=== PATIENT | female | born 1985 | race Caucasian/White ===

== ENCOUNTER 2018-05-19 14:21 | Inpatient (IN) | payer BC ==
[2018-05-19] MEDS ORDERED: Misoprostol 25 MCG (1/4 of 100 MCG) Tab VAG PRN (14:38)
[2018-05-19] MEDS ORDERED: Terbutaline 1 MG/ML SDV SUBCUT PRN (14:38)
[2018-05-19] MEDS ORDERED: Ondansetron 4 MG/2 ML SDV IV PRN (14:41)
[2018-05-19] MEDS ORDERED: Lidocaine 1% 50 ML MDV INJECT PRN (14:41)
[2018-05-19] MEDS ORDERED: Carboprost Tromethamine 250 MCG/1 ML Amp IM PRN (14:41)
[2018-05-19] MEDS ORDERED: Tranexamic Acid 1,000 MG in Sodium Chloride 0.9% 100 ML IV PRN (14:41)
[2018-05-19] MEDS ORDERED: Misoprostol 200 MCG Tab PO PRN (14:41)
[2018-05-19] MEDS ORDERED: Water For Irrigation,Sterile 1,000 ML Container IRR PRN (14:41)
[2018-05-19] MEDS ORDERED: Methylergonovine 0.2 MG/1 ML Amp IM PRN (14:41)
[2018-05-19] MEDS ORDERED: Sodium Chloride 0.9% 10 ML Syringe FLUSH PRN (14:41)
[2018-05-19] MEDS ORDERED: Nalbuphine 10 MG/1 ML Vial IVPUSH PRN (14:41)
[2018-05-19] MEDS ORDERED: Sodium Chloride 0.9% 10 ML SDV IV PRN (14:41)
[2018-05-19] MEDS ORDERED: Sodium Chloride 0.9% 2.5 ML Syringe FLUSH PRN (14:41)
[2018-05-19] MEDS ORDERED: Lactated Ringers 1,000 ML IV SCH (14:45)
[2018-05-19] MEDS ORDERED: Oxytocin/0.9 % Sodium Chloride 30 UNIT/500 ML BAG IV SCH ×2 (14:45)
[2018-05-19] MEDS: Butorphanol 1 MG/ML SDV IVPUSH PRN ×2 (19:55→21:57)
[2018-05-19] MEDS ORDERED: fentaNYL 100 MCG/2 ML SDV ONE (22:52)
--- NOTE | 2018-05-19 23:05 | PCM.PREANE ---
Preanesthetic Assessment - Anesthesia/Transfusion/Family Hx Anesthesia History: Prior Anesthesia Without Reaction Other Type of Anesthesia Reaction Comment: Reports post delivery (spinal) they gave IV drip med and I got sick Family History of Anesthesia Reaction: No Transfusion History: No Prior Transfusion(s) - Review of Systems General: No Symptoms Pulmonary: No Symptoms Cardiovascular: No Symptoms Gastrointestinal: No Symptoms Neurological: No Symptoms Other: Reports: None - Physical Assessment Height: 5 ft 6 in Weight: 82.1 kg ASA Class: 2 Mental Status: Alert & Oriented x3 Airway Class: Mallampati = 2 Dentition: Reports: Normal Dentition Thyro-Mental Finger Breadths: 3 Mouth Opening Finger Breadths: 3 ROM/Head Extension: Full Lungs: Clear to Auscultation, Normal Respiratory Effort Cardiovascular: Regular Rate, Regular Rhythm - Lab Values: Laboratory Last Values WBC 13.43 K/uL (4.0-11.0) H 05/19/18 15:10 RBC 4.68 M/uL (4.30-5.90) 05/19/18 15:10 Hgb 14.9 g/dL (12.0-16.0) 05/19/18 15:10 Hct 43.7 % (36.0-46.0) 05/19/18 15:10 MCV 93.4 fL (80.0-98.0) 05/19/18 15:10 MCH 31.8 pg (27.0-32.0) 05/19/18 15:10 MCHC 34.1 g/dL (31.0-37.0) 05/19/18 15:10 RDW Std Deviation 47.4 fl (28.0-62.0) 05/19/18 15:10 RDW Coeff of Renetta 14 % (11.0-15.0) 05/19/18 15:10 Plt Count 205 K/uL (150-400) 05/19/18 15:10 MPV 10.50 fL (7.40-12.00) 05/19/18 15:10 Nucleated RBC % 0.0 /100WBC 05/19/18 15:10 Nucleated RBCs # 0 K/uL 05/19/18 15:10 Blood Type O POSITIVE 05/19/18 15:10 Antibody Screen NEGATIVE 05/19/18 15:10 - Allergies Allergies/Adverse Reactions: Allergies Allergy/AdvReac Type Severity Reaction Status Date / Time morphine Allergy Nausea and Verified 05/19/18 17:18 Vomiting - Acknowledgements Anesthesia Type Planned: Spinal Pt an Appropriate Candidate for the Planned Anesthesia: Yes Alternatives and Risks of Anesthesia Discussed w Pt/Guardian: Yes Pt/Guardian Understands and Agrees with Anesthesia Plan: Yes PreAnesthesia Questionnaire HEENT History: Reports: None Cardiovascular History: Reports: Blood Clots/VTE/DVT Respiratory History: Reports: None Gastrointestinal History: Reports: GERD Genitourinary History: Reports: None HOME VISITOR History: Reports: : 2 Para: 1 LMP (Approximate): Other OB/BYN History: Delivered 9 months ago at that time had trouble with IV drip medication post delivery for pain as they did repair.."I do not know name of medication" Musculoskeletal History: Reports: Fracture Other Musculoskeletal History: hx: fractured wrist and nose Neurological History: Reports: None Psychiatric History: Reports: None Endocrine/Metabolic History: Reports: None Hematologic History: Reports: None Immunologic History: Reports: None Oncologic (Cancer) History: Reports: None Dermatologic History: Reports: None - Infectious Disease History Infectious Disease History: Reports: Chicken Pox - Past Surgical History HEENT Surgical History: Reports: Oral Surgery, Other (See Below) Other HEENT Surgeries/Procedures: wisdom teeth extraction Cardiovascular Surgical History: Reports: None Female Surgical History: Reports: Other (See Below) Musculoskeletal Surgical History: Reports: Other (See Below) Other Musculoskeletal Surgeries/Procedures:: right hand benign tumor removal Dermatological Surgical History: Reports: None - SUBSTANCE USE Smoking Status *Q: Never Smoker Recreational Drug Use History: No - HOME MEDS Home Medications: Home Meds Norgestimate-Ethinyl Estradiol [Ortho Tri-Cyclen 28 Tablet] 1 tab PO DAILY 10/27 [History] Acetaminophen/HYDROcodone [[place] 325-5 MG] 1 tab PO Q4H PRN #30 tablet 10/29/15 [Rx] - CURRENT (IN HOUSE) MEDS Current Meds: Current Medications Butorphanol Tartrate (Stadol) 1 mg IVPUSH Q1H PRN PRN Reason: Pain Last Admin: 05/19/18 21:57 Dose: 1 mg Carboprost Tromethamine (Hemabate Ds) 250 mcg IM ASDIRECTED PRN PRN Reason: Post Hemorrhage Lactated Ringer's (Ringers, Lactated) 1,000 mls @ 150 mls/hr IV ASDIRECTED ISAIAS Last Admin: 05/19/18 22:37 Dose: 999 mls/hr Oxytocin/Sodium Chloride (Oxytocin 30 Unit/500 Ml-Ns) 30 unit in 500 mls @ 2 mls/hr IV TITRATE ISAIAS; Protocol Oxytocin/Sodium Chloride (Oxytocin 30 Unit/500 Ml-Ns) 30 unit in 500 mls @ 500 mls/hr IV TITRATE ISAIAS Tranexamic Acid 1,000 mg/ (Sodium Chloride) 110 mls @ 660 mls/hr IV ONETIME PRN PRN Reason: Bleeding Lidocaine HCl (Xylocaine 1%) 50 ml INJECT ONETIME PRN PRN Reason: Laceration repair Methylergonovine Maleate (Methergine) 0.2 mg IM ASDIRECTED PRN PRN Reason: Post Hemorrhage Misoprostol (Cytotec) 25 mcg VAG Q4H PRN PRN Reason: Cervical Ripening Last Admin: 05/19/18 15:30 Dose: 25 mcg Misoprostol (Cytotec) 200 mcg PO ONETIME PRN PRN Reason: Post Hemorrhage Nalbuphine HCl (Nubain) 10 mg IVPUSH Q1H PRN PRN Reason: Pain (severe 7-10) Ondansetron HCl (Zofran) 4 mg IV Q6H PRN PRN Reason: Nausea/Vomiting Sodium Chloride (Saline Flush) 10 ml FLUSH ASDIRECTED PRN PRN Reason: Keep Vein Open Sodium Chloride (Saline Flush) 2.5 ml FLUSH ASDIRECTED PRN PRN Reason: Keep Vein Open Sodium Chloride (Normal Saline) 10 ml IV ASDIRECTED PRN PRN Reason: IV Use Sterile Water (Sterile Water For Irrigation) 1,000 ml IRR ASDIRECTED PRN PRN Reason: delivery Terbutaline Sulfate (Brethine) 0.25 mg SUBCUT ASDIRECTED PRN PRN Reason: Tacysystole Discontinued Medications Fentanyl (Sublimaze) Confirm Administered Dose 100 mcg .ROUTE .STK-MED ONE Stop: 05/19/18 22:53 Fentanyl/Bupivacaine HCl (Nwsrqxdo-Ftnfx-Ia 2 Mcg/Ml-0.125%) Confirm Administered Dose 100 mls @ as directed .ROUTE .STK-MED ONE Stop: 05/19/18 22:48
--- NOTE | 2018-05-19 23:52 | PCM.DEL ---
L & D Note - General Info Date of Service: 05/19/18 - Delivery Note Labor: Spontaneous Cervical Ripening Method: Misoprostil Delivery Outcome: Livebirth Infant Delivery Method: Spontaneous Vaginal Delivery-Single Presentation: Right Occiput Anterior (PANCHITO) Nuchal Cord: None Anesthetic: Lidocaine (Xylocaine) 1% Plain Amniotic Fluid Description: Clear Episiotomy Type: None Laceration: 2nd Degree Suture type: Other (monocryl) Suture size: 3-0 Placenta: Intact Cord: 3 Vessels Estimated Blood Loss: 300 Resuscitation Needed: No Score 1 min: 8 Score 5 min: 9 Delivery Comments (Free Text/Narrative):: Live female delivered at 2305 , weight 3590g 8/9 - General Info Date of Service: 05/19/18 - Patient Data Weight - Most Recent: 82.1 kg Lab Results Last 24 Hours: Laboratory Results - last 24 hr 05/19/18 05/19/18 Range/Units 15:10 15:10 WBC 13.43 H (4.0-11.0) K/uL RBC 4.68 (4.30-5.90) M/uL Hgb 14.9 (12.0-16.0) g/dL Hct 43.7 (36.0-46.0) % MCV 93.4 (80.0-98.0) fL MCH 31.8 (27.0-32.0) pg MCHC 34.1 (31.0-37.0) g/dL RDW Std Deviation 47.4 (28.0-62.0) fl RDW Coeff of Renetta 14 (11.0-15.0) % Plt Count 205 (150-400) K/uL MPV 10.50 (7.40-12.00) fL Nucleated RBC % 0.0 /100WBC Nucleated RBCs # 0 K/uL Blood Type O POSITIVE Antibody Screen NEGATIVE Med Orders - Current: Current Medications Butorphanol Tartrate (Stadol) 1 mg IVPUSH Q1H PRN PRN Reason: Pain Last Admin: 05/19/18 21:57 Dose: 1 mg Carboprost Tromethamine (Hemabate Ds) 250 mcg IM ASDIRECTED PRN PRN Reason: Post Hemorrhage Lactated Ringer's (Ringers, Lactated) 1,000 mls @ 150 mls/hr IV ASDIRECTED ISAIAS Last Admin: 05/19/18 22:37 Dose: 999 mls/hr Oxytocin/Sodium Chloride (Oxytocin 30 Unit/500 Ml-Ns) 30 unit in 500 mls @ 2 mls/hr IV TITRATE ISAIAS; Protocol Oxytocin/Sodium Chloride (Oxytocin 30 Unit/500 Ml-Ns) 30 unit in 500 mls @ 500 mls/hr IV TITRATE ISAIAS Tranexamic Acid 1,000 mg/ (Sodium Chloride) 110 mls @ 660 mls/hr IV ONETIME PRN PRN Reason: Bleeding Lidocaine HCl (Xylocaine 1%) 50 ml INJECT ONETIME PRN PRN Reason: Laceration repair Methylergonovine Maleate (Methergine) 0.2 mg IM ASDIRECTED PRN PRN Reason: Post Hemorrhage Misoprostol (Cytotec) 25 mcg VAG Q4H PRN PRN Reason: Cervical Ripening Last Admin: 05/19/18 15:30 Dose: 25 mcg Misoprostol (Cytotec) 200 mcg PO ONETIME PRN PRN Reason: Post Hemorrhage Nalbuphine HCl (Nubain) 10 mg IVPUSH Q1H PRN PRN Reason: Pain (severe 7-10) Ondansetron HCl (Zofran) 4 mg IV Q6H PRN PRN Reason: Nausea/Vomiting Sodium Chloride (Saline Flush) 10 ml FLUSH ASDIRECTED PRN PRN Reason: Keep Vein Open Sodium Chloride (Saline Flush) 2.5 ml FLUSH ASDIRECTED PRN PRN Reason: Keep Vein Open Sodium Chloride (Normal Saline) 10 ml IV ASDIRECTED PRN PRN Reason: IV Use Sterile Water (Sterile Water For Irrigation) 1,000 ml IRR ASDIRECTED PRN PRN Reason: delivery Terbutaline Sulfate (Brethine) 0.25 mg SUBCUT ASDIRECTED PRN PRN Reason: Tacysystole Discontinued Medications Fentanyl (Sublimaze) Confirm Administered Dose 100 mcg .ROUTE .STK-MED ONE Stop: 05/19/18 22:53 Fentanyl/Bupivacaine HCl (Yuqexnrr-Lwmzd-Wq 2 Mcg/Ml-0.125%) Confirm Administered Dose 100 mls @ as directed .ROUTE .STK-MED ONE Stop: 05/19/18 22:48 - Problem List Review Problem List Initiated/Reviewed/Updated: Yes - My Orders Last 24 Hours: My Active Orders 05/19/18 14:38 Terbutaline [Brethine] 0.25 mg SUBCUT ASDIRECTED PRN miSOPROStol [Cytotec] 25 mcg VAG Q4H PRN 05/19/18 14:39 Bedrest Bathroom Privileges [RC] ASDIRECTED Communication Order [RC] ASDIRECTED Communication Order [RC] ASDIRECTED Communication Order [RC] ASDIRECTED Notify Provider [RC] PRN Notify Provider [RC] PRN Notify Provider [RC] STAT Oxygen Therapy [RC] ASDIRECTED Vital Signs [RC] PER UNIT ROUTINE 05/19/18 14:41 Patient Status [ADT] Routine May Shower [RC] ASDIRECTED Notify Provider [RC] PRN Up ad Alley [RC] ASDIRECTED Vital Signs [RC] PER UNIT ROUTINE Butorphanol [Stadol] 1 mg IVPUSH Q1H PRN Carboprost Tromethamine [Hemabate DS] 250 mcg IM ASDIRECTED PRN Lidocaine 1% [Xylocaine 1%] 50 ml INJECT ONETIME PRN Methylergonovine [Methergine] 0.2 mg IM ASDIRECTED PRN Nalbuphine [Nubain] 10 mg IVPUSH Q1H PRN Ondansetron [Zofran] 4 mg IV Q6H PRN Sodium Chloride 0.9% [Normal Saline] 10 ml IV ASDIRECTED PRN Sodium Chloride 0.9% [Saline Flush] 10 ml FLUSH ASDIRECTED PRN Sodium Chloride 0.9% [Saline Flush] 2.5 ml FLUSH ASDIRECTED PRN Tranexamic Acid [Cyklokapron] 1,000 mg Sodium Chloride 0.9% [Normal Saline] 100 ml IV ONETIME Water For Irrigation,Sterile [Sterile Water for Irrigation] 1,000 ml IRR ASDIRECTED PRN miSOPROStol [Cytotec] 200 mcg PO ONETIME PRN Scalp Electrode [WOMSER] Per Unit Routine Peripheral IV Insertion Adult [OM.PC] Routine Resuscitation Status Routine 05/19/18 14:45 Lactated Ringers [Ringers, Lactated] 1,000 ml IV ASDIRECTED Oxytocin/0.9 % Sodium Chloride [Oxytocin 30 Unit/500 ML-NS] 30 unit in 500 ml IV TITRATE Oxytocin/0.9 % Sodium Chloride [Oxytocin 30 Unit/500 ML-NS] 30 unit in 500 ml IV TITRATE Medication Administration Instruction [OM.PC] Q3H 05/19/18 17:00 Antiembolic Devices [RC] PER UNIT ROUTINE Sequential Compression Device [OM.PC] Routine 05/19/18 Dinner Clear Liquid Diet [DIET]
[2018-05-20] MEDS ORDERED: Ibuprofen 400 MG Tab PO PRN (01:19)
[2018-05-20] MEDS ORDERED: Bisacodyl 10 MG Supp RECTAL PRN (01:19)
[2018-05-20] MEDS ORDERED: Acetaminophen 500 MG Tab PO PRN ×2 (01:19)
[2018-05-20] MEDS ORDERED: oxyCODONE 5 MG Tab PO PRN (01:19)
[2018-05-20] MEDS ORDERED: Witch Hazel Medicated Pads 40/Jar TOP PRN (01:19)
[2018-05-20] MEDS ORDERED: Benzocaine/Menthol 20%-0.5% Spray 78 GM Cannister TOP PRN (01:19)
[2018-05-20] MEDS ORDERED: Ibuprofen 800 MG Tab PO PRN (01:19)
[2018-05-20] MEDS ORDERED: Lanolin 100% Cream 7 GM Tube TOP PRN (01:19)
[2018-05-20] MEDS ORDERED: Docusate Sodium 100 MG Cap PO PRN (01:19)
--- NOTE | 2018-05-20 06:51 | OR ---
SURGEON: LAURA BERMAN DATE OF PROCEDURE: 05/19/2018 PREOPERATIVE DIAGNOSIS: A 32-year-old, G1, P0, at 40 weeks 0 days for induction of labor, GBS negative. POSTOPERATIVE DIAGNOSIS: A 32-year-old, G1, P0, at 40 weeks 0 days for induction of labor, GBS negative. PROCEDURE PERFORMED: 1. Induction of labor. 2. Spontaneous vaginal delivery. 3. Repair of second-degree vaginal laceration. ANESTHESIA: 1% lidocaine. FINDINGS: A live female delivered at 2305. score were 8 and 9. Weight is 3590 g. BRIEF HISTORY ABOUT THE PATIENT: She is G2, P1, at 40 weeks 0 days, who came to the clinic to the ER and she was desiring induction of labor. She was 3. She recieved a dose of Cytotec. She made progress to 4 cm. The membranes were ruptured. She had a rapid change within 2 hours. She became fully dilated. PROCEDURE: She was encouraged to push. She had good pushing effort. She delivered the head, followed subsequently by the anterior and posterior shoulder and body of the infant was delivered. The cord was clamped and cut. Pitocin was started. The placenta was delivered via controlled cord traction. The perineum was inspected and a second-degree laceration was noted, which was repaired with 2-0 Monocryl. Then, the periurethral laceration was noted that was noted to be hemostatic, so was not repaired. All instrument and pad counts were correct x3. The uterus was bimanually palpated and was noted to be firm and normal lochia was noted. All instrument and pad counts were correct x2. The patient tolerated the procedure well and was left in the labor and delivery room with the baby. SMITA CHRISTIANSON /[id number] ASHLEY
--- NOTE | 2018-05-20 10:52 | PCM.PNPP ---
- General Info Date of Service: 05/20/18 Admission Dx/Problem (Free Text): 32 yo P2 s/p , PPD 2 Subjective Update: Patient seen at bedside , ambulating , voiding and tolerating regular diet Functional Status: Reports: Pain Controlled, Tolerating Diet, Ambulating, Urinating - Review of Systems General: Reports: No Symptoms HEENT: Reports: No Symptoms Pulmonary: Reports: No Symptoms Cardiovascular: Reports: No Symptoms Gastrointestinal: Reports: No Symptoms Genitourinary: Reports: No Symptoms Musculoskeletal: Reports: No Symptoms Skin: Reports: No Symptoms Neurological: Reports: No Symptoms Psychiatric: Reports: No Symptoms - General Info Date of Service: 05/20/18 - Patient Data Vital Signs - Most Recent: Last Vital Signs Temp 36.2 C 05/20/18 07:20 Pulse 73 05/20/18 07:20 Resp 17 05/20/18 07:20 BP 132/72 05/20/18 07:20 Pulse Ox 100 05/20/18 07:20 Weight - Most Recent: 82.1 kg Lab Results - Last 24 Hours: Laboratory Results - last 24 hr 05/19/18 05/19/18 Range/Units 15:10 15:10 WBC 13.43 H (4.0-11.0) K/uL RBC 4.68 (4.30-5.90) M/uL Hgb 14.9 (12.0-16.0) g/dL Hct 43.7 (36.0-46.0) % MCV 93.4 (80.0-98.0) fL MCH 31.8 (27.0-32.0) pg MCHC 34.1 (31.0-37.0) g/dL RDW Std Deviation 47.4 (28.0-62.0) fl RDW Coeff of Renetta 14 (11.0-15.0) % Plt Count 205 (150-400) K/uL MPV 10.50 (7.40-12.00) fL Nucleated RBC % 0.0 /100WBC Nucleated RBCs # 0 K/uL Blood Type O POSITIVE Antibody Screen NEGATIVE Med Orders - Current: Current Medications Acetaminophen (Tylenol Extra Strength) 500 mg PO Q4H PRN PRN Reason: Pain Acetaminophen (Tylenol Extra Strength) 1,000 mg PO Q4H PRN PRN Reason: Pain Last Admin: 05/20/18 01:35 Dose: 1,000 mg Benzocaine/Menthol (Dermoplast Pain Relief 20%-0.5% [place]) 78 gm TOP ASDIRECTED PRN PRN Reason: Perineal Comfort Measure Last Admin: 05/20/18 01:36 Dose: 78 gm Bisacodyl (Dulcolax) 10 mg RECTAL ONETIME PRN PRN Reason: Constipation Butorphanol Tartrate (Stadol) 1 mg IVPUSH Q1H PRN PRN Reason: Pain Last Admin: 05/19/18 21:57 Dose: 1 mg Carboprost Tromethamine (Hemabate Ds) 250 mcg IM ASDIRECTED PRN PRN Reason: Post Hemorrhage Docusate Sodium (Colace) 100 mg PO BID PRN PRN Reason: Constipation Last Admin: 05/20/18 01:35 Dose: 100 mg Emollient Ointment (Lansinoh Hpa) 0 gm TOP ASDIRECTED PRN PRN Reason: Sore Nipples Last Admin: 05/20/18 01:36 Dose: 7 gm Lactated Ringer's (Ringers, Lactated) 1,000 mls @ 150 mls/hr IV ASDIRECTED ISAIAS Last Admin: 05/19/18 22:37 Dose: 999 mls/hr Oxytocin/Sodium Chloride (Oxytocin 30 Unit/500 Ml-Ns) 30 unit in 500 mls @ 2 mls/hr IV TITRATE [facility]; Protocol Oxytocin/Sodium Chloride (Oxytocin 30 Unit/500 Ml-Ns) 30 unit in 500 mls @ 500 mls/hr IV TITRATE ISAIAS Last Admin: 05/19/18 23:05 Dose: 999 mls/hr Tranexamic Acid 1,000 mg/ (Sodium Chloride) 110 mls @ 660 mls/hr IV ONETIME PRN PRN Reason: Bleeding Ibuprofen (Motrin) 400 mg PO Q4H PRN PRN Reason: Pain Ibuprofen (Motrin) 800 mg PO Q6H PRN PRN Reason: Pain Lidocaine HCl (Xylocaine 1%) 50 ml INJECT ONETIME PRN PRN Reason: Laceration repair Last Admin: 05/19/18 23:05 Dose: 50 ml Methylergonovine Maleate (Methergine) 0.2 mg IM ASDIRECTED PRN PRN Reason: Post Hemorrhage Misoprostol (Cytotec) 25 mcg VAG Q4H PRN PRN Reason: Cervical Ripening Last Admin: 05/19/18 15:30 Dose: 25 mcg Misoprostol (Cytotec) 200 mcg PO ONETIME PRN PRN Reason: Post Hemorrhage Nalbuphine HCl (Nubain) 10 mg IVPUSH Q1H PRN PRN Reason: Pain (severe 7-10) Ondansetron HCl (Zofran) 4 mg IV Q6H PRN PRN Reason: Nausea/Vomiting Oxycodone HCl (Oxycodone) 5 mg PO Q2H PRN PRN Reason: Pain Sodium Chloride (Saline Flush) 10 ml FLUSH ASDIRECTED PRN PRN Reason: Keep Vein Open Sodium Chloride (Saline Flush) 2.5 ml FLUSH ASDIRECTED PRN PRN Reason: Keep Vein Open Sodium Chloride (Normal Saline) 10 ml IV ASDIRECTED PRN PRN Reason: IV Use Sterile Water (Sterile Water For Irrigation) 1,000 ml IRR ASDIRECTED PRN PRN Reason: delivery Last Admin: 05/19/18 23:05 Dose: 1,000 ml Terbutaline Sulfate (Brethine) 0.25 mg SUBCUT ASDIRECTED PRN PRN Reason: Tacysystole Witch Marii (Tucks) 1 pad TOP ASDIRECTED PRN PRN Reason: comfort care Last Admin: 05/20/18 01:37 Dose: 1 pad Discontinued Medications Fentanyl (Sublimaze) Confirm Administered Dose 100 mcg .ROUTE .STK-MED ONE Stop: 05/19/18 22:53 Fentanyl/Bupivacaine HCl (Ydbsgtut-Jqhfr-Hk 2 Mcg/Ml-0.125%) Confirm Administered Dose 100 mls @ as directed .ROUTE .STK-MED ONE Stop: 05/19/18 22:48 - Infant Interaction Support Person: - Recovery Exam Fundal Tone: Firm Fundal Level: 1 Fingerbreadths Below Umbilicus Fundal Placement: Midline Lochia Amount: Scant Lochia Color: Rubra/Red Perineum Description: Other (see below) Other Perinuem Description: 2nd degree tear Episiotomy/Laceration: Approximated Bladder Status: Voiding Urinary Elimination: Voided - Exam General: Alert, Oriented HEENT: Pupils Equal Neck: Supple Lungs: Clear to Auscultation Cardiovascular: Regular Rate, Regular Rhythm GI/Abdominal Exam: Normal Bowel Sounds Extremities: Normal Inspection Neurological: No New Focal Deficit Psy/Mental Status: Alert - Problem List & Annotations (1) Vaginal delivery SNOMED Code(s): 846685054 Code(s): O80 - ENCOUNTER FOR FULL-TERM UNCOMPLICATED DELIVERY Status: Acute Current Visit: Yes - Problem List Review Problem List Initiated/Reviewed/Updated: Yes - My Orders Last 24 Hours: My Active Orders 05/19/18 14:38 Terbutaline [Brethine] 0.25 mg SUBCUT ASDIRECTED PRN miSOPROStol [Cytotec] 25 mcg VAG Q4H PRN 05/19/18 14:41 Patient Status [ADT] Routine Vital Signs [RC] PER UNIT ROUTINE Butorphanol [Stadol] 1 mg IVPUSH Q1H PRN Carboprost Tromethamine [Hemabate DS] 250 mcg IM ASDIRECTED PRN Lidocaine 1% [Xylocaine 1%] 50 ml INJECT ONETIME PRN Methylergonovine [Methergine] 0.2 mg IM ASDIRECTED PRN Nalbuphine [Nubain] 10 mg IVPUSH Q1H PRN Ondansetron [Zofran] 4 mg IV Q6H PRN Sodium Chloride 0.9% [Normal Saline] 10 ml IV ASDIRECTED PRN Sodium Chloride 0.9% [Saline Flush] 10 ml FLUSH ASDIRECTED PRN Sodium Chloride 0.9% [Saline Flush] 2.5 ml FLUSH ASDIRECTED PRN Tranexamic Acid [Cyklokapron] 1,000 mg Sodium Chloride 0.9% [Normal Saline] 100 ml IV ONETIME Water For Irrigation,Sterile [Sterile Water for Irrigation] 1,000 ml IRR ASDIRECTED PRN miSOPROStol [Cytotec] 200 mcg PO ONETIME PRN Scalp Electrode [WOMSER] Per Unit Routine Peripheral IV Insertion Adult [OM.PC] Routine Resuscitation Status Routine 05/19/18 14:45 Lactated Ringers [Ringers, Lactated] 1,000 ml IV ASDIRECTED Oxytocin/0.9 % Sodium Chloride [Oxytocin 30 Unit/500 ML-NS] 30 unit in 500 ml IV TITRATE Oxytocin/0.9 % Sodium Chloride [Oxytocin 30 Unit/500 ML-NS] 30 unit in 500 ml IV TITRATE Medication Administration Instruction [OM.PC] Q3H 05/19/18 17:00 Antiembolic Devices [RC] PER UNIT ROUTINE Sequential Compression Device [OM.PC] Routine 05/20/18 01:19 Patient Status [ADT] Routine Up ad Alley [RC] ASDIRECTED Vital Signs [RC] PER UNIT ROUTINE Acetaminophen [Tylenol Extra Strength] 1,000 mg PO Q4H PRN Acetaminophen [Tylenol Extra Strength] 500 mg PO Q4H PRN Benzocaine/Menthol [Dermoplast Pain Relief 20%-0.5% [place]] 78 gm TOP ASDIRECTED PRN Bisacodyl [Dulcolax] 10 mg RECTAL ONETIME PRN Docusate Sodium [Colace] 100 mg PO BID PRN Ibuprofen [Motrin] 400 mg PO Q4H PRN Ibuprofen [Motrin] 800 mg PO Q6H PRN Lanolin [Lansinoh HPA] See Dose Instructions TOP ASDIRECTED PRN Witch Marii [Tucks] 1 pad TOP ASDIRECTED PRN oxyCODONE 5 mg PO Q2H PRN Assess Lochia [WOMSER] Per Unit Routine Assess Uterine Involution [WOMSER] Per Unit Routine Peripheral IV Discontinue [OM.PC] Routine 05/20/18 Breakfast Regular Diet [DIET] 05/21/18 05:11 HEMOGLOBIN/HEMATOCRIT,HH [HEME] Timed - Assessment Assessment:: 32 yo P2 s/p PPD 1 , stable , normal lochia , - Plan Plan:: Anticipate discharge tomorrow
[2018-05-21 07:41] VITALS: BP 112/70
--- NOTE | 2018-05-21 09:09 | PCM.PNPP ---
- General Info Date of Service: 05/21/18 Admission Dx/Problem (Free Text): 32 yo P2 s/p , PPD 2 Subjective Update: Patient seen at bedside , ambulating , voiding and tolerating regular diet Functional Status: Reports: Pain Controlled, Tolerating Diet, Ambulating, Urinating - Review of Systems General: Reports: No Symptoms HEENT: Reports: No Symptoms Pulmonary: Reports: No Symptoms Cardiovascular: Reports: No Symptoms Gastrointestinal: Reports: No Symptoms Genitourinary: Reports: No Symptoms Musculoskeletal: Reports: No Symptoms Skin: Reports: No Symptoms Neurological: Reports: No Symptoms Psychiatric: Reports: No Symptoms - General Info Date of Service: 05/21/18 - Patient Data Vital Signs - Most Recent: Last Vital Signs Temp 36.4 C 05/21/18 07:15 Pulse 68 05/21/18 07:15 Resp 17 05/21/18 07:15 BP 112/70 05/21/18 07:15 Pulse Ox 96 05/21/18 07:15 Weight - Most Recent: 82.1 kg Lab Results - Last 24 Hours: Laboratory Results - last 24 hr 05/21/18 Range/Units 06:45 Hgb 12.5 (12.0-16.0) g/dL Hct 36.9 (36.0-46.0) % Med Orders - Current: Current Medications Acetaminophen (Tylenol Extra Strength) 500 mg PO Q4H PRN PRN Reason: Pain Acetaminophen (Tylenol Extra Strength) 1,000 mg PO Q4H PRN PRN Reason: Pain Last Admin: 05/20/18 01:35 Dose: 1,000 mg Benzocaine/Menthol (Dermoplast Pain Relief 20%-0.5% [place]) 78 gm TOP ASDIRECTED PRN PRN Reason: Perineal Comfort Measure Last Admin: 05/20/18 01:36 Dose: 78 gm Bisacodyl (Dulcolax) 10 mg RECTAL ONETIME PRN PRN Reason: Constipation Butorphanol Tartrate (Stadol) 1 mg IVPUSH Q1H PRN PRN Reason: Pain Last Admin: 05/19/18 21:57 Dose: 1 mg Carboprost Tromethamine (Hemabate Ds) 250 mcg IM ASDIRECTED PRN PRN Reason: Post Hemorrhage Docusate Sodium (Colace) 100 mg PO BID PRN PRN Reason: Constipation Last Admin: 05/20/18 01:35 Dose: 100 mg Emollient Ointment (Lansinoh Hpa) 0 gm TOP ASDIRECTED PRN PRN Reason: Sore Nipples Last Admin: 05/20/18 01:36 Dose: 7 gm Lactated Ringer's (Ringers, Lactated) 1,000 mls @ 150 mls/hr IV ASDIRECTED ISAIAS Last Admin: 05/19/18 22:37 Dose: 999 mls/hr Oxytocin/Sodium Chloride (Oxytocin 30 Unit/500 Ml-Ns) 30 unit in 500 mls @ 2 mls/hr IV TITRATE [facility]; Protocol Oxytocin/Sodium Chloride (Oxytocin 30 Unit/500 Ml-Ns) 30 unit in 500 mls @ 500 mls/hr IV TITRATE ISAIAS Last Admin: 05/19/18 23:05 Dose: 999 mls/hr Tranexamic Acid 1,000 mg/ (Sodium Chloride) 110 mls @ 660 mls/hr IV ONETIME PRN PRN Reason: Bleeding Ibuprofen (Motrin) 400 mg PO Q4H PRN PRN Reason: Pain Ibuprofen (Motrin) 800 mg PO Q6H PRN PRN Reason: Pain Lidocaine HCl (Xylocaine 1%) 50 ml INJECT ONETIME PRN PRN Reason: Laceration repair Last Admin: 05/19/18 23:05 Dose: 50 ml Methylergonovine Maleate (Methergine) 0.2 mg IM ASDIRECTED PRN PRN Reason: Post Hemorrhage Misoprostol (Cytotec) 25 mcg VAG Q4H PRN PRN Reason: Cervical Ripening Last Admin: 05/19/18 15:30 Dose: 25 mcg Misoprostol (Cytotec) 200 mcg PO ONETIME PRN PRN Reason: Post Hemorrhage Nalbuphine HCl (Nubain) 10 mg IVPUSH Q1H PRN PRN Reason: Pain (severe 7-10) Ondansetron HCl (Zofran) 4 mg IV Q6H PRN PRN Reason: Nausea/Vomiting Oxycodone HCl (Oxycodone) 5 mg PO Q2H PRN PRN Reason: Pain Sodium Chloride (Saline Flush) 10 ml FLUSH ASDIRECTED PRN PRN Reason: Keep Vein Open Sodium Chloride (Saline Flush) 2.5 ml FLUSH ASDIRECTED PRN PRN Reason: Keep Vein Open Sodium Chloride (Normal Saline) 10 ml IV ASDIRECTED PRN PRN Reason: IV Use Sterile Water (Sterile Water For Irrigation) 1,000 ml IRR ASDIRECTED PRN PRN Reason: delivery Last Admin: 05/19/18 23:05 Dose: 1,000 ml Terbutaline Sulfate (Brethine) 0.25 mg SUBCUT ASDIRECTED PRN PRN Reason: Tacysystole Witch Marii (Tucks) 1 pad TOP ASDIRECTED PRN PRN Reason: comfort care Last Admin: 05/20/18 01:37 Dose: 1 pad Discontinued Medications Fentanyl (Sublimaze) Confirm Administered Dose 100 mcg .ROUTE .STK-MED ONE Stop: 05/19/18 22:53 Last Admin: 05/20/18 17:17 Dose: Not Given Fentanyl/Bupivacaine HCl (Yybfbxhq-Vuide-If 2 Mcg/Ml-0.125%) Confirm Administered Dose 100 mls @ as directed .ROUTE .STK-MED ONE Stop: 05/19/18 22:48 Last Admin: 05/20/18 17:17 Dose: Not Given - Interaction Support Person: - Recovery Exam Fundal Tone: Firm Fundal Level: At Umbilicus Fundal Placement: Midline Lochia Amount: Scant Lochia Color: Rubra/Red Perineum Description: Other (see below) Other Perinuem Description: 2nd degree laceration. Episiotomy/Laceration: Approximated Bladder Status: Voiding Urinary Elimination: Voided - Problem List & Annotations (1) Vaginal delivery SNOMED Code(s): 959910458 Code(s): O80 - ENCOUNTER FOR FULL-TERM UNCOMPLICATED DELIVERY Status: Acute Current Visit: Yes - Problem List Review Problem List Initiated/Reviewed/Updated: Yes - Assessment Assessment:: 32 yo P2 s/p PPD 2 , stable , normal lochia , - Plan Plan:: Discharge home today
== END 2018-05-21 11:45 | disposition home or self-care (01) | DRG 560 ==
LOC: MW.OB 14:21 → OBSVTOIN 20:05 → MW.OB 05-20 02:28
PROVIDERS: ADMIT Obstetrics & Gynecology; ATTEND Obstetrics & Gynecology
PROC: 10907ZC Drainage of Amniotic Fluid, Therapeutic from Products of Conception, Via Natural or Artificial Opening (ICD-10-PCS; principal; 2018-05-19)
PROC: 10E0XZZ Delivery of Products of Conception, External Approach (ICD-10-PCS; principal; 2018-05-19)
PROC: 0KQM0ZZ Repair Perineum Muscle, Open Approach (ICD-10-PCS; principal; 2018-05-19)
PROC: 3E0P7VZ Introduction of Hormone into Female Reproductive, Via Natural or Artificial Opening (ICD-10-PCS; principal; 2018-05-19)
DX: O48.0 Post-term pregnancy (principal); Z3A.40 40 weeks gestation of pregnancy; O70.1 Second degree perineal laceration during delivery; Z37.0 Single live birth; O99.62 Diseases of the digestive system complicating childbirth; K21.9 Gastro-esophageal reflux disease without esophagitis; Z88.5 Allergy status to narcotic agent
CPT/HCPCS: 36415; 59025; 59409; 85014; 85018; 85027; 86850; 86900; 86901; A9270-GY; J0595; J2001; J2590; J7120

== ENCOUNTER 2020-05-29 12:25 | Inpatient (IN) | payer BC ==
[2020-05-29] MEDS ORDERED: Nalbuphine 10 MG/1 ML Vial IVPUSH PRN (12:43)
[2020-05-29] MEDS ORDERED: Sodium Chloride 0.9% 2.5 ML Syringe FLUSH PRN (12:43)
[2020-05-29] MEDS ORDERED: Sodium Chloride 0.9% 10 ML Syringe FLUSH PRN (12:43)
[2020-05-29] MEDS ORDERED: Carboprost Tromethamine 250 MCG/1 ML Amp IM PRN (12:43)
[2020-05-29] MEDS ORDERED: Methylergonovine 0.2 MG/1 ML Amp IM PRN (12:43)
[2020-05-29] MEDS ORDERED: Misoprostol 200 MCG Tab PO PRN (12:43)
[2020-05-29] MEDS ORDERED: Sodium Chloride 0.9% 10 ML SDV IV PRN (12:43)
[2020-05-29] MEDS ORDERED: Tranexamic Acid 1,000 MG in Sodium Chloride 0.9% 100 ML IV PRN (12:43)
[2020-05-29] MEDS ORDERED: Water For Irrigation,Sterile 1,000 ML Container IRR PRN (12:43)
[2020-05-29] MEDS ORDERED: Lidocaine 1% 50 ML MDV INJECT PRN (12:43)
[2020-05-29] MEDS ORDERED: Butorphanol 1 MG/ML SDV IVPUSH PRN (12:43)
[2020-05-29] MEDS ORDERED: Oxytocin/0.9 % Sodium Chloride 30 UNIT/500 ML BAG IV SCH (12:45)
[2020-05-29] MEDS: Lactated Ringers 1,000 ML IV SCH ×2 (12:48→13:26)
[2020-05-29] MEDS ORDERED: fentaNYL 100 MCG/2 ML SDV ONE (12:55)
[2020-05-29] MEDS ORDERED: Ropivacaine HCl/PF 100 ML ONE (12:56)
--- NOTE | 2020-05-29 13:29 | PCM.PREANE ---
Preanesthetic Assessment - Procedure Proposed Procedure: Pt assessed at 1250 for continuous labor epidural for active labor. - Anesthesia/Transfusion/Family Hx Anesthesia History: Prior Anesthesia Without Reaction (Previous light spinal for vag. delivery, sedation for procedure on hand, both without negative anesthesia reactions) Other Type of Anesthesia Reaction Comment: Reports post delivery (spinal) they gave IV drip med and I got sick Family History of Anesthesia Reaction: No Transfusion History: No Prior Transfusion(s) - Review of Systems General: No Symptoms Pulmonary: No Symptoms Cardiovascular: No Symptoms Gastrointestinal: No Symptoms Neurological: No Symptoms Other: Reports: None - Physical Assessment NPO Status Date: 05/29/20 (Clear liquids okay. NPO for food since 09. ) NPO Status Time: 09:00 ASA Class: 2 Mental Status: Alert & Oriented x3 Airway Class: Mallampati = 2 Dentition: Reports: Normal Dentition Thyro-Mental Finger Breadths: 4 Mouth Opening Finger Breadths: 3 ROM/Head Extension: Full Lungs: Normal Respiratory Effort Cardiovascular: Regular Rate, Regular Rhythm - Lab Values: Laboratory Last Values WBC 11.79 K/uL (4.0-11.0) H 05/29/20 12:33 RBC 4.86 M/uL (4.30-5.90) 05/29/20 12:33 Hgb 15.7 g/dL (12.0-16.0) 05/29/20 12:33 Hct 46.9 % (36.0-46.0) H 05/29/20 12:33 MCV 96.5 fL (80.0-98.0) 05/29/20 12:33 MCH 32.3 pg (27.0-32.0) H 05/29/20 12:33 MCHC 33.5 g/dL (31.0-37.0) 05/29/20 12:33 RDW Std Deviation 49.2 fl (28.0-62.0) 05/29/20 12:33 RDW Coeff of Renetta 14 % (11.0-15.0) 05/29/20 12:33 Plt Count 190 K/uL (150-400) 05/29/20 12:33 MPV 11.10 fL (7.40-12.00) 05/29/20 12:33 Nucleated RBC % 0.0 /100WBC 05/29/20 12:33 Nucleated RBCs # 0 K/uL 05/29/20 12:33 - Allergies Allergies/Adverse Reactions: Allergies Allergy/AdvReac Type Severity Reaction Status Date / Time morphine Allergy Nausea and Verified 03/21/20 16:19 Vomiting - Acknowledgements Anesthesia Type Planned: Epidural Pt an Appropriate Candidate for the Planned Anesthesia: Yes Alternatives and Risks of Anesthesia Discussed w Pt/Guardian: Yes Pt/Guardian Understands and Agrees with Anesthesia Plan: Yes Additional Comments: Bedside with patient and S.O. Discussed risks, benefits, alternatives, and procedure for epidural. All questions answered and concerns addressed. H & P completed. Consent signed with RN witness. PreAnesthesia Questionnaire HEENT History: Reports: None Cardiovascular History: Reports: Blood Clots/VTE/DVT Respiratory History: Reports: None Gastrointestinal History: Reports: GERD Genitourinary History: Reports: None ARCHITECTURE CONSULTANT History: Reports: Other OB/BYN History: Delivered 9 months ago at that time had trouble with IV drip medication post delivery for pain as they did repair.."I do not know name of medication" Musculoskeletal History: Reports: Fracture Other Musculoskeletal History: hx: fractured wrist and nose Neurological History: Reports: None Psychiatric History: Reports: None Endocrine/Metabolic History: Reports: None Hematologic History: Reports: None Immunologic History: Reports: None Oncologic (Cancer) History: Reports: None Dermatologic History: Reports: None - Infectious Disease History Infectious Disease History: Reports: Chicken Pox - Past Surgical History HEENT Surgical History: Reports: Oral Surgery, Other (See Below) Other HEENT Surgeries/Procedures: wisdom teeth extraction Cardiovascular Surgical History: Reports: None Female Surgical History: Reports: Other (See Below) Musculoskeletal Surgical History: Reports: Other (See Below) Other Musculoskeletal Surgeries/Procedures:: right hand benign tumor removal Dermatological Surgical History: Reports: None - HOME MEDS Home Medications: Home Meds Pnv No.95/Ferrous Fum/Folic AC [ Tablet] 1 tab PO DAILY 03/21/20 [History] - CURRENT (IN HOUSE) MEDS Current Meds: Current Medications Butorphanol Tartrate (Butorphanol 1 Mg/Ml Sdv) 1 mg IVPUSH Q1H PRN PRN Reason: Pain Carboprost Tromethamine (Carboprost Tromethamine 250 Mcg/1 Ml Amp) 250 mcg IM ASDIRECTED PRN PRN Reason: Post Hemorrhage Oxytocin/Sodium Chloride (Oxytocin 30 Unit/500 Ml-Ns) 30 unit in 500 mls @ 500 mls/hr IV TITRATE [facility] Tranexamic Acid 1,000 mg/ (Sodium Chloride) 110 mls @ 660 mls/hr IV ONETIME PRN PRN Reason: Bleeding Lactated Ringer's (Ringers, Lactated) 1,000 mls @ 150 mls/hr IV ASDIRECTED [facility] Lidocaine HCl (Lidocaine 1% 50 Ml Mdv) 50 ml INJECT ONETIME PRN PRN Reason: Laceration repair Methylergonovine Maleate (Methylergonovine 0.2 Mg/1 Ml Amp) 0.2 mg IM ASDIRECTED PRN PRN Reason: Post Hemorrhage Misoprostol (Misoprostol 200 Mcg Tab) 200 mcg PO ONETIME PRN PRN Reason: Post Hemorrhage Nalbuphine HCl (Nalbuphine 10 Mg/1 Ml Vial) 10 mg IVPUSH Q1H PRN PRN Reason: Pain (severe 7-10) Sodium Chloride (Sodium Chloride 0.9% 10 Ml Syringe) 10 ml FLUSH ASDIRECTED PRN PRN Reason: Keep Vein Open Sodium Chloride (Sodium Chloride 0.9% 2.5 Ml Syringe) 2.5 ml FLUSH ASDIRECTED PRN PRN Reason: Keep Vein Open Sodium Chloride (Sodium Chloride 0.9% 10 Ml Sdv) 10 ml IV ASDIRECTED PRN PRN Reason: IV Use Sterile Water (Water For Irrigation,Sterile 1,000 Ml Container) 1,000 ml IRR ASDIRECTED PRN PRN Reason: delivery Discontinued Medications Fentanyl (Fentanyl 100 Mcg/2 Ml Sdv) Confirm Administered Dose 200 mcg .ROUTE .STK-MED ONE Stop: 05/29/20 12:56 Ropivacaine (Naropin 0.2%) Confirm Administered Dose 100 mls @ as directed .ROUTE .STK-MED ONE Stop: 05/29/20 12:57
--- NOTE | 2020-05-29 13:36 | PCM.SN.2 ---
- Free Text/Narrative Note: Anesthesia time 2032-0291 MAMTA procedure note 1250- Bedside with patient and S.O. Discussed risks, benefits, alternatives, and procedure for epidural. All questions answered and concerns addressed. H & P completed, labs reviewed. 1255- Consent signed with RN witness. 1305- Sitting position. ASA monitors on. See RN EMR charting for VS throughout. Time-out completed. 1306- Hat for provider and pt, sterile gloves, Sterile prep. with chlorhexidine, sterile plastic drape. 1307- Lido 1% for localization 1308- First attempt successful at L 3-4 level, ANGELA with saline at 7 cm. No paresthesias. Catheter threaded without resistance to 12 cm. 1309- Negative to aspiration for both heme and CSF. Negative test dose (3ml 1.5%lido with 1:200,000 epi.). 1311- Sterile occlusive dressing placed, cloth tape to secure. 1316- Clinician bolus of remaining 2ml 1.5% lido with epi, and 6 ml 0.2% ropiv. c/ 2 mcg/ml fentanyl. 1316- epidural infusion started (0.2% ropivicaine c/ 2 mcg/ml fentanyl) at 8 ml/hr with DOORPERSON OR LUGGAGE PORTER option of 4ml every 10 min with an hourly max. of 36 ml. Pt educated regarding DOORPERSON OR LUGGAGE PORTER use. 1336- pt reassessed. VSS. T9 level achieved. Pt reports satisfactory pain control.
[2020-05-29] MEDS ORDERED: Benzocaine/Menthol 20%-0.5% Spray 78 GM Cannister TOP PRN (18:07)
[2020-05-29] MEDS ORDERED: Docusate Sodium 100 MG Cap PO PRN (18:07)
[2020-05-29] MEDS ORDERED: Lanolin 100% Cream 7 GM Tube TOP PRN (18:07)
[2020-05-29] MEDS ORDERED: Ibuprofen 400 MG Tab PO PRN (18:07)
[2020-05-29] MEDS ORDERED: Bisacodyl 10 MG Supp RECTAL PRN (18:07)
[2020-05-29] MEDS ORDERED: Witch Hazel Medicated Pads 40/Jar TOP PRN (18:07)
[2020-05-29] MEDS ORDERED: Acetaminophen 500 MG Tab PO PRN ×2 (18:07)
[2020-05-29] MEDS ORDERED: oxyCODONE 5 MG Tab PO PRN (18:07)
[2020-05-29] MEDS: Ibuprofen 800 MG Tab PO PRN (18:31)
--- NOTE | 2020-05-29 18:45 | PCM.DEL ---
L & D Note - General Info Date of Service: 05/29/20 - Delivery Note Labor: Spontaneous Delivery Outcome: Livebirth Delivery Method: Spontaneous Vaginal Delivery-Single Presentation: Left Occiput Anterior ([place]) Nuchal Cord: None Anesthesia Type: Epidural Amniotic Fluid Description: Clear Episiotomy Type: None Laceration: 2nd Degree Suture type: Vicryl, Other (Monocyrl 2.0) Suture size: 2-0 Placenta: Intact Cord: 3 Vessels Estimated Blood Loss: 300 Resuscitation Needed: No Score 1 min: 8 Score 5 min: 9 Delivery Comments (Free Text/Narrative):: Live male delivered at 1545 8/9 weight 4430g 3VC - General Info Date of Service: 05/29/20 - Patient Data Weight - Most Recent: 83.915 kg Lab Results Last 24 Hours: Laboratory Results - last 24 hr 05/29/20 05/29/20 05/29/20 Range/Units 12:33 12:33 13:46 WBC 11.79 H (4.0-11.0) K/uL RBC 4.86 (4.30-5.90) M/uL Hgb 15.7 (12.0-16.0) g/dL Hct 46.9 H (36.0-46.0) % MCV 96.5 (80.0-98.0) fL MCH 32.3 H (27.0-32.0) pg MCHC 33.5 (31.0-37.0) g/dL RDW Std Deviation 49.2 (28.0-62.0) fl RDW Coeff of Renetta 14 (11.0-15.0) % Plt Count 190 (150-400) K/uL MPV 11.10 (7.40-12.00) fL Nucleated RBC % 0.0 /100WBC Nucleated RBCs # 0 K/uL Cord ABG pH (7.18-7.38) Cord ABG Base Excess (-10--2) Cord VBG pH (7.25-7.45) Cord VBG Base Excess (-10--2) SARS-CoV-2 RNA (VICTOR HUGO) NEGATIVE (NEGATIVE) Blood Type O POSITIVE Antibody Screen NEGATIVE 05/29/20 Range/Units 15:46 WBC (4.0-11.0) K/uL RBC (4.30-5.90) M/uL Hgb (12.0-16.0) g/dL Hct (36.0-46.0) % MCV (80.0-98.0) fL MCH (27.0-32.0) pg MCHC (31.0-37.0) g/dL RDW Std Deviation (28.0-62.0) fl RDW Coeff of Renetta (11.0-15.0) % Plt Count (150-400) K/uL MPV (7.40-12.00) fL Nucleated RBC % /100WBC Nucleated RBCs # K/uL Cord ABG pH 7.194 (7.18-7.38) Cord ABG Base Excess -10 (-10--2) Cord VBG pH 7.274 (7.25-7.45) Cord VBG Base Excess -9 (-10--2) SARS-CoV-2 RNA (VICTOR HUGO) (NEGATIVE) Blood Type Antibody Screen Med Orders - Current: Current Medications Acetaminophen (Acetaminophen 500 Mg Tab) 500 mg PO Q4H PRN PRN Reason: Pain Acetaminophen (Acetaminophen 500 Mg Tab) 1,000 mg PO Q4H PRN PRN Reason: Pain Benzocaine/Menthol (Benzocaine/Menthol 20%-0.5% [place] 78 Gm Cannister) 78 gm TOP ASDIRECTED PRN PRN Reason: Perineal Comfort Measure Last Admin: 05/29/20 18:29 Dose: 1 canister Documented by: Bisacodyl (Bisacodyl 10 Mg Supp) 10 mg RECTAL ONETIME PRN PRN Reason: Constipation Butorphanol Tartrate (Butorphanol 1 Mg/Ml Sdv) 1 mg IVPUSH Q1H PRN PRN Reason: Pain Carboprost Tromethamine (Carboprost Tromethamine 250 Mcg/1 Ml Amp) 250 mcg IM ASDIRECTED PRN PRN Reason: Post Hemorrhage Docusate Sodium (Docusate Sodium 100 Mg Cap) 100 mg PO BID PRN PRN Reason: Constipation Emollient Ointment (Lanolin 100% Cream 7 Gm Tube) 0 gm TOP ASDIRECTED PRN PRN Reason: Sore Nipples Last Admin: 05/29/20 18:30 Dose: 7 g Documented by: Oxytocin/Sodium Chloride (Oxytocin 30 Unit/500 Ml-Ns) 30 unit in 500 mls @ 500 mls/hr IV TITRATE [facility] Last Infusion: 05/29/20 16:00 Dose: 500 mls/hr Documented by: Tranexamic Acid 1,000 mg/ (Sodium Chloride) 110 mls @ 660 mls/hr IV ONETIME PRN PRN Reason: Bleeding Lactated Ringer's (Ringers, Lactated) 1,000 mls @ 150 mls/hr IV ASDIRECTED [facility] Last Admin: 05/29/20 13:26 Dose: 999 mls/hr Documented by: Ibuprofen (Ibuprofen 400 Mg Tab) 400 mg PO Q4H PRN PRN Reason: Pain Ibuprofen (Ibuprofen 800 Mg Tab) 800 mg PO Q6H PRN PRN Reason: Pain Last Admin: 05/29/20 18:31 Dose: 800 mg Documented by: Lidocaine HCl (Lidocaine 1% 50 Ml Mdv) 50 ml INJECT ONETIME PRN PRN Reason: Laceration repair Last Admin: 05/29/20 16:11 Dose: 50 ml Documented by: Methylergonovine Maleate (Methylergonovine 0.2 Mg/1 Ml Amp) 0.2 mg IM ASDIRECTED PRN PRN Reason: Post Hemorrhage Misoprostol (Misoprostol 200 Mcg Tab) 200 mcg PO ONETIME PRN PRN Reason: Post Hemorrhage Nalbuphine HCl (Nalbuphine 10 Mg/1 Ml Vial) 10 mg IVPUSH Q1H PRN PRN Reason: Pain (severe 7-10) Oxycodone HCl (Oxycodone 5 Mg Tab) 5 mg PO Q2H PRN PRN Reason: Pain Sodium Chloride (Sodium Chloride 0.9% 10 Ml Syringe) 10 ml FLUSH ASDIRECTED PRN PRN Reason: Keep Vein Open Sodium Chloride (Sodium Chloride 0.9% 2.5 Ml Syringe) 2.5 ml FLUSH ASDIRECTED PRN PRN Reason: Keep Vein Open Sodium Chloride (Sodium Chloride 0.9% 10 Ml Sdv) 10 ml IV ASDIRECTED PRN PRN Reason: IV Use Sterile Water (Water For Irrigation,Sterile 1,000 Ml Container) 1,000 ml IRR ASDIRECTED PRN PRN Reason: delivery Witch Marii (Witch Marii Medicated Pads 40/Jar) 1 pad TOP ASDIRECTED PRN PRN Reason: comfort care Last Admin: 05/29/20 18:29 Dose: 1 tub Documented by: Discontinued Medications Fentanyl (Fentanyl 100 Mcg/2 Ml Sdv) Confirm Administered Dose 200 mcg .ROUTE .STK-MED ONE Stop: 05/29/20 12:56 Ropivacaine (Naropin 0.2%) Confirm Administered Dose 100 mls @ as directed .ROUTE .STK-MED ONE Stop: 05/29/20 12:57 - Problem List & Annotations (1) Vaginal delivery SNOMED Code(s): 407218129 Code(s): O80 - ENCOUNTER FOR FULL-TERM UNCOMPLICATED DELIVERY Status: Acute Current Visit: No - Problem List Review Problem List Initiated/Reviewed/Updated: Yes - My Orders Last 24 Hours: My Active Orders 05/29/20 12:15 Patient Status [ADT] Routine 05/29/20 12:33 RPR (SYPHILIS SERO) W/ RFLX [REF] Routine 05/29/20 12:43 May Shower [RC] ASDIRECTED Notify Provider [RC] PRN Up ad Alley [RC] ASDIRECTED Vital Signs [RC] PER UNIT ROUTINE Butorphanol [Stadol] 1 mg IVPUSH Q1H PRN Carboprost Tromethamine [Hemabate DS] 250 mcg IM ASDIRECTED PRN Lidocaine 1% [Xylocaine 1%] 50 ml INJECT ONETIME PRN Methylergonovine [Methergine] 0.2 mg IM ASDIRECTED PRN Nalbuphine [Nubain] 10 mg IVPUSH Q1H PRN Sodium Chloride 0.9% [Normal Saline] 10 ml IV ASDIRECTED PRN Sodium Chloride 0.9% [Saline Flush] 10 ml FLUSH ASDIRECTED PRN Sodium Chloride 0.9% [Saline Flush] 2.5 ml FLUSH ASDIRECTED PRN Tranexamic Acid [Cyklokapron] 1,000 mg Sodium Chloride 0.9% [Normal Saline] 100 ml IV ONETIME Water For Irrigation,Sterile [Sterile Water for Irrigation] 1,000 ml IRR ASDIRECTED PRN miSOPROStoL [Cytotec] 200 mcg PO ONETIME PRN Peripheral IV Insertion Adult [OM.PC] Routine Resuscitation Status Routine 05/29/20 12:45 Lactated Ringers [Ringers, Lactated] 1,000 ml IV ASDIRECTED Oxytocin/0.9 % Sodium Chloride [Oxytocin 30 Unit/500 ML-NS] 30 unit in 500 ml IV TITRATE 05/29/20 18:07 Acetaminophen [Tylenol Extra Strength] 1,000 mg PO Q4H PRN Acetaminophen [Tylenol Extra Strength] 500 mg PO Q4H PRN Benzocaine/Menthol [Dermoplast Pain Relief 20%-0.5% [place]] 78 gm TOP ASDIRECTED PRN Docusate Sodium [Colace] 100 mg PO BID PRN Ibuprofen [Motrin] 400 mg PO Q4H PRN Ibuprofen [Motrin] 800 mg PO Q6H PRN Lanolin [Lansinoh HPA] See Dose Instructions TOP ASDIRECTED PRN bisacodyL [Dulcolax] 10 mg RECTAL ONETIME PRN oxyCODONE 5 mg PO Q2H PRN witch Marii [Tucks] 1 pad TOP ASDIRECTED PRN 05/29/20 18:08 Assess Lochia [WOMSER] Per Unit Routine Assess Uterine Involution [WOMSER] Per Unit Routine Peripheral IV Discontinue [OM.PC] Routine 05/30/20 05:11 HEMOGLOBIN/HEMATOCRIT,HH [HEME] Timed - Assessment Assessment:: 34yo P3 s/p PPD0 Rubella Immune GBS negative
[2020-05-30] MEDS: Ibuprofen 800 MG Tab PO PRN (05:37)
--- NOTE | 2020-05-30 07:12 | PCM48HPAN ---
Post Anesthesia Note - EVALUATION WITHIN 48HRS OF ANESTHETIC Vital Signs in Normal Range: Yes Patient Participated in Evaluation: Yes Respiratory Function Stable: Yes Airway Patent: Yes Cardiovascular Function Stable: Yes Hydration Status Stable: Yes Pain Control Satisfactory: Yes (Reports minimal pain (2/10)) Nausea and Vomiting Control Satisfactory: Yes (Taking PO well, denies nausea) Mental Status Recovered: Yes Vital Signs: Last Vital Signs Temp 36.1 C 05/30/20 04:43 Pulse 76 05/30/20 04:43 Resp 16 05/30/20 04:43 BP 98/52 L 05/30/20 04:43 Pulse Ox 96 05/30/20 04:43 - COMMENTS/OBSERVATIONS Free Text/Narrative:: Ambulating independently. Reports full return of strength and sensation to BLE.
--- NOTE | 2020-05-30 07:52 | OR ---
SURGEON: LAURA BERMAN DATE OF PROCEDURE: 05/29/2020 PREOPERATIVE DIAGNOSIS: 34 years old, G3, P2-0-0-2 at 40 weeks 6 days, admitted in active labor. POSTOPERATIVE DIAGNOSIS: 34 years old, G3, P2-0-0-2 at 40 weeks 6 days, admitted in active labor. PROCEDURES: 1. Normal spontaneous vaginal delivery. 2. Repair of second-degree vaginal laceration. ESTIMATED BLOOD LOSS: 300 mL. ANAESTHESIA Epidural INTRAVENOUS FLUIDS: Pitocin running. NOTES AND FINDINGS: A live male delivered at 1545. score is 8 and 9, weight is 4430 g. BRIEF HISTORY ABOUT THE PATIENT: 34-year-old, G3, P2-0-0-2 at 40 weeks 6 days, who came in, in active labor. She was 7 cm dilated. She was requesting epidural. After the patient got epidural, AROM was done and she made quick progress and became fully dilated. DESCRIPTION OF PROCEDURE: With the patient being fully dilated, she was encouraged to push. With good pushing effort, she delivered the head subsequently by the anterior and posterior shoulders. The body of the infant was delivered and placed on maternal abdomen. Delayed cord clamping was observed. Cord blood gases were obtained. Cord was clamped and cut, and the placenta was then delivered via controlled cord traction. After delivery of placenta, the perineum was inspected, noted to have a second-degree laceration which was repaired in layers. with 2.0 vicryl for perineal body and 2.0 monocryl for the skin. The bimanual exam was done. Uterus was noted to be contracted and Pitocin was running at this time. The patient tolerated the procedure well. All instrument and pad counts were correct x2. SMITA / SAMMY /[id number] ASHLEY
--- NOTE | 2020-05-30 10:13 | PCM.PNPP ---
- General Info Date of Service: 05/30/20 Functional Status: Reports: Pain Controlled, Tolerating Diet, Ambulating, Urinating - Review of Systems General: Reports: No Symptoms HEENT: Reports: No Symptoms Pulmonary: Reports: No Symptoms Cardiovascular: Reports: No Symptoms Gastrointestinal: Reports: No Symptoms Genitourinary: Reports: No Symptoms Musculoskeletal: Reports: No Symptoms Skin: Reports: No Symptoms Neurological: Reports: No Symptoms Psychiatric: Reports: No Symptoms - General Info Date of Service: 05/30/20 - Patient Data Vital Signs - Most Recent: Last Vital Signs Temp 36.1 C 05/30/20 04:43 Pulse 76 05/30/20 04:43 Resp 16 05/30/20 04:43 BP 98/52 L 05/30/20 04:43 Pulse Ox 96 05/30/20 04:43 Weight - Most Recent: 83.915 kg Lab Results - Last 24 Hours: Laboratory Results - last 24 hr 05/29/20 05/29/20 05/29/20 Range/Units 12:33 12:33 13:46 WBC 11.79 H (4.0-11.0) K/uL RBC 4.86 (4.30-5.90) M/uL Hgb 15.7 (12.0-16.0) g/dL Hct 46.9 H (36.0-46.0) % MCV 96.5 (80.0-98.0) fL MCH 32.3 H (27.0-32.0) pg MCHC 33.5 (31.0-37.0) g/dL RDW Std Deviation 49.2 (28.0-62.0) fl RDW Coeff of Renetta 14 (11.0-15.0) % Plt Count 190 (150-400) K/uL MPV 11.10 (7.40-12.00) fL Nucleated RBC % 0.0 /100WBC Nucleated RBCs # 0 K/uL Cord ABG pH (7.18-7.38) Cord ABG Base Excess (-10--2) Cord VBG pH (7.25-7.45) Cord VBG Base Excess (-10--2) SARS-CoV-2 RNA (VICTOR HUGO) NEGATIVE (NEGATIVE) Blood Type O POSITIVE Antibody Screen NEGATIVE 05/29/20 05/30/20 Range/Units 15:46 06:30 WBC (4.0-11.0) K/uL RBC (4.30-5.90) M/uL Hgb 12.2 (12.0-16.0) g/dL Hct 36.6 (36.0-46.0) % MCV (80.0-98.0) fL MCH (27.0-32.0) pg MCHC (31.0-37.0) g/dL RDW Std Deviation (28.0-62.0) fl RDW Coeff of Renetta (11.0-15.0) % Plt Count (150-400) K/uL MPV (7.40-12.00) fL Nucleated RBC % /100WBC Nucleated RBCs # K/uL Cord ABG pH 7.194 (7.18-7.38) Cord ABG Base Excess -10 (-10--2) Cord VBG pH 7.274 (7.25-7.45) Cord VBG Base Excess -9 (-10--2) SARS-CoV-2 RNA (VICTOR HUGO) (NEGATIVE) Blood Type Antibody Screen Med Orders - Current: Current Medications Acetaminophen (Acetaminophen 500 Mg Tab) 500 mg PO Q4H PRN PRN Reason: Pain Acetaminophen (Acetaminophen 500 Mg Tab) 1,000 mg PO Q4H PRN PRN Reason: Pain Benzocaine/Menthol (Benzocaine/Menthol 20%-0.5% Florence 78 Gm Cannister) 78 gm TOP ASDIRECTED PRN PRN Reason: Perineal Comfort Measure Last Admin: 05/29/20 18:29 Dose: 1 canister Documented by: Bisacodyl (Bisacodyl 10 Mg Supp) 10 mg RECTAL ONETIME PRN PRN Reason: Constipation Docusate Sodium (Docusate Sodium 100 Mg Cap) 100 mg PO BID PRN PRN Reason: Constipation Emollient Ointment (Lanolin 100% Cream 7 Gm Tube) 0 gm TOP ASDIRECTED PRN PRN Reason: Sore Nipples Last Admin: 05/29/20 18:30 Dose: 7 g Documented by: Ibuprofen (Ibuprofen 400 Mg Tab) 400 mg PO Q4H PRN PRN Reason: Pain Ibuprofen (Ibuprofen 800 Mg Tab) 800 mg PO Q6H PRN PRN Reason: Pain Last Admin: 05/30/20 05:37 Dose: 800 mg Documented by: Oxycodone HCl (Oxycodone 5 Mg Tab) 5 mg PO Q2H PRN PRN Reason: Pain Sodium Chloride (Sodium Chloride 0.9% 10 Ml Syringe) 10 ml FLUSH ASDIRECTED PRN PRN Reason: Keep Vein Open Sodium Chloride (Sodium Chloride 0.9% 2.5 Ml Syringe) 2.5 ml FLUSH ASDIRECTED PRN PRN Reason: Keep Vein Open Sodium Chloride (Sodium Chloride 0.9% 10 Ml Sdv) 10 ml IV ASDIRECTED PRN PRN Reason: IV Use Witch Marii (Witch Marii Medicated Pads 40/Jar) 1 pad TOP ASDIRECTED PRN PRN Reason: comfort care Last Admin: 05/29/20 18:29 Dose: 1 tub Documented by: Discontinued Medications Butorphanol Tartrate (Butorphanol 1 Mg/Ml Sdv) 1 mg IVPUSH Q1H PRN PRN Reason: Pain Carboprost Tromethamine (Carboprost Tromethamine 250 Mcg/1 Ml Amp) 250 mcg IM ASDIRECTED PRN PRN Reason: Post Hemorrhage Fentanyl (Fentanyl 100 Mcg/2 Ml Sdv) Confirm Administered Dose 200 mcg .ROUTE .Loosecubes ONE Stop: 05/29/20 12:56 Oxytocin/Sodium Chloride (Oxytocin 30 Unit/500 Ml-Ns) 30 unit in 500 mls @ 500 mls/hr IV TITRATE [facility] Last Infusion: 05/29/20 16:00 Dose: 500 mls/hr Documented by: Tranexamic Acid 1,000 mg/ (Sodium Chloride) 110 mls @ 660 mls/hr IV ONETIME PRN PRN Reason: Bleeding Lactated Ringer's (Ringers, Lactated) 1,000 mls @ 150 mls/hr IV ASDIRECTED [facility] Last Admin: 05/29/20 13:26 Dose: 999 mls/hr Documented by: Ropivacaine (Naropin 0.2%) Confirm Administered Dose 100 mls @ as directed .ROUTE .[place]-MED ONE Stop: 05/29/20 12:57 Lidocaine HCl (Lidocaine 1% 50 Ml Mdv) 50 ml INJECT ONETIME PRN PRN Reason: Laceration repair Last Admin: 05/29/20 16:11 Dose: 50 ml Documented by: Methylergonovine Maleate (Methylergonovine 0.2 Mg/1 Ml Amp) 0.2 mg IM ASDIRECTED PRN PRN Reason: Post Hemorrhage Misoprostol (Misoprostol 200 Mcg Tab) 200 mcg PO ONETIME PRN PRN Reason: Post Hemorrhage Nalbuphine HCl (Nalbuphine 10 Mg/1 Ml Vial) 10 mg IVPUSH Q1H PRN PRN Reason: Pain (severe 7-10) Sterile Water (Water For Irrigation,Sterile 1,000 Ml Container) 1,000 ml IRR ASDIRECTED PRN PRN Reason: delivery - Interaction Support Person: - Recovery Exam Fundal Tone: Firm Fundal Level: At Umbilicus Fundal Placement: Midline Lochia Amount: Small Lochia Color: Rubra/Red Perineum Description: Intact, Minimal Bruising/Swelling Episiotomy/Laceration: Approximated - Exam General: Alert HEENT: Pupils Equal Neck: Supple Lungs: Clear to Auscultation Cardiovascular: Regular Rate, Regular Rhythm GI/Abdominal Exam: Normal Bowel Sounds Neurological: No New Focal Deficit Psy/Mental Status: Alert - Problem List & Annotations (1) Vaginal delivery SNOMED Code(s): 762369442 Code(s): O80 - ENCOUNTER FOR FULL-TERM UNCOMPLICATED DELIVERY Status: Acute Current Visit: No - Problem List Review Problem List Initiated/Reviewed/Updated: Yes - My Orders Last 24 Hours: My Active Orders 05/29/20 12:15 Patient Status [ADT] Routine 05/29/20 12:33 RPR (SYPHILIS SERO) W/ RFLX [REF] Routine 05/29/20 12:43 Sodium Chloride 0.9% [Normal Saline] 10 ml IV ASDIRECTED PRN Sodium Chloride 0.9% [Saline Flush] 10 ml FLUSH ASDIRECTED PRN Sodium Chloride 0.9% [Saline Flush] 2.5 ml FLUSH ASDIRECTED PRN Peripheral IV Insertion Adult [OM.PC] Routine Resuscitation Status Routine 05/29/20 18:07 Acetaminophen [Tylenol Extra Strength] 1,000 mg PO Q4H PRN Acetaminophen [Tylenol Extra Strength] 500 mg PO Q4H PRN Benzocaine/Menthol [Dermoplast Pain Relief 20%-0.5% Florence] 78 gm TOP ASDIRECTED PRN Docusate Sodium [Colace] 100 mg PO BID PRN Ibuprofen [Motrin] 400 mg PO Q4H PRN Ibuprofen [Motrin] 800 mg PO Q6H PRN Lanolin [Lansinoh HPA] See Dose Instructions TOP ASDIRECTED PRN bisacodyL [Dulcolax] 10 mg RECTAL ONETIME PRN oxyCODONE 5 mg PO Q2H PRN witch Marii [Tucks] 1 pad TOP ASDIRECTED PRN 05/29/20 18:08 Assess Lochia [WOMSER] Per Unit Routine Assess Uterine Involution [WOMSER] Per Unit Routine Peripheral IV Discontinue [OM.PC] Routine 05/30/20 Breakfast Regular Diet [DIET] - Assessment Assessment:: 34yo P3 s/p PPD1 Rubella Immune GBS negative - Plan Plan:: Routine Discharge home
[2020-05-30 19:33] VITALS: BP 107/62; PULSE 68
== END 2020-05-30 18:46 | disposition home or self-care (01) | DRG 560 ==
LOC: MW.OBCHECK 12:25 → MW.OB 13:21 → OBSVTOIN 18:08 → MW.OB 18:08
PROVIDERS: ADMIT Obstetrics & Gynecology; ATTEND Obstetrics & Gynecology
PROC: 10E0XZZ Delivery of Products of Conception, External Approach (ICD-10-PCS; principal; 2020-05-29)
PROC: 10907ZC Drainage of Amniotic Fluid, Therapeutic from Products of Conception, Via Natural or Artificial Opening (ICD-10-PCS; 2020-05-29)
PROC: 0KQM0ZZ Repair Perineum Muscle, Open Approach (ICD-10-PCS; 2020-05-29)
PROC: 3E0R3BZ Introduction of Anesthetic Agent into Spinal Canal, Percutaneous Approach (ICD-10-PCS; 2020-05-29)
PROC: 00HU33Z Insertion of Infusion Device into Spinal Canal, Percutaneous Approach (ICD-10-PCS; 2020-05-29)
DX: O48.0 Post-term pregnancy (principal); O70.1 Second degree perineal laceration during delivery; Z20.822 Contact with and (suspected) exposure to COVID-19; Z37.0 Single live birth; Z3A.40 40 weeks gestation of pregnancy
CPT/HCPCS: 01967; 36415; 51702; 59025; 59409; 82803; 85014; 85018; 85027; 86592; 86850; 86900; 86901; A9270-GY; J2001; J2590; J2795; J3010; J7120; U0002

== ENCOUNTER 2023-01-20 05:16 | Inpatient (IN) | payer BC ==
[2023-01-20] MEDS ORDERED: Water For Irrigation,Sterile 1,000 ML Container IRR PRN (05:17)
[2023-01-20] MEDS ORDERED: Sodium Chloride 0.9% 10 ML Syringe FLUSH PRN (05:17)
[2023-01-20] MEDS ORDERED: Nalbuphine 10 MG/0.5 ML Syringe IVPUSH PRN (05:17)
[2023-01-20] MEDS ORDERED: Misoprostol 200 MCG Tab PO PRN (05:17)
[2023-01-20] MEDS ORDERED: Tranexamic Acid IN NACL,ISO-OS 1,000 MG in Premix Bag 1 BAG IV PRN ×4 (05:17→18:41)
[2023-01-20] MEDS ORDERED: Sodium Chloride 0.9% 20 ML SDV IV PRN (05:17)
[2023-01-20] MEDS ORDERED: Sodium Chloride 0.9% 2.5 ML Syringe FLUSH PRN (05:17)
[2023-01-20] MEDS ORDERED: Methylergonovine 0.2 MG/1 ML Amp IM PRN (05:17)
[2023-01-20] MEDS ORDERED: Ondansetron 4 MG/2 ML SDV IVPUSH PRN (05:17)
[2023-01-20] MEDS ORDERED: Butorphanol 1 MG/ML SDV IVPUSH PRN (05:17)
[2023-01-20] MEDS ORDERED: Lidocaine 1% 50 ML MDV INJECT PRN (05:17)
[2023-01-20] MEDS ORDERED: Carboprost Tromethamine 250 MCG/1 mL Vial IM PRN ×2 (05:17→18:41)
[2023-01-20] MEDS ORDERED: Misoprostol 25 MCG (1/4 of 100 MCG) Tab VAG PRN ×2 (05:20)
[2023-01-20] MEDS ORDERED: Terbutaline 1 MG/ML SDV SUBCUT PRN (05:20)
[2023-01-20] MEDS: Lactated Ringers 1,000 ML IV SCH ×3 (05:30→15:08)
[2023-01-20] MEDS ORDERED: Oxytocin/0.9 % Sodium Chloride 30 UNIT/500 ML BAG IV SCH ×2 (05:30)
[2023-01-20 05:53] LABS: HEMATOCRIT 40.3 % (37.0-47.0); HEMOGLOBIN 14.4 g/dL (12.0-16.0); MEAN CORPUSCULAR HEMOGLOBIN 33.4 pg (28.0-32.0); MEAN CORPUSCULAR HGB CONC 35.7 g/dL (32.0-36.0); MEAN CORPUSCULAR VOLUME 93.5 fL (83.0-99.0); MEAN PLATELET VOLUME 10.2 fL (9.4-12.3); PLATELET COUNT,PLT 162 K/uL (150-400); RED BLOOD CELL COUNT 4.31 M/uL (4.10-5.30); WHITE BLOOD CELL COUNT,WBC 11.53 K/uL (3.9-11.3)
[2023-01-20] MEDS ORDERED: ePHEDrine 50 MG/ML SDV IVPUSH PRN ×2 (09:18)
[2023-01-20] MEDS ORDERED: Phenylephrine HCl 0.5 MG/5 ML AMP IVPUSH PRN (09:18)
[2023-01-20] MEDS ORDERED: Ropivacaine HCl/PF 400 MG in Premix Bag 1 BAG EPIDUR SCH (09:30)
[2023-01-20] MEDS ORDERED: Ropivacaine HCl/PF 200 ML ONE (16:01)
[2023-01-20] MEDS ORDERED: Phenylephrine HCl 0.5 MG/5 ML AMP ONE (16:01)
[2023-01-20] MEDS ORDERED: Bupivacaine 0.5% 10 ML SDV ONE (16:01)
[2023-01-20] MEDS ORDERED: Methylergonovine 0.2 MG/1 ML Amp ONE (18:16)
[2023-01-20] MEDS ORDERED: Oxytocin/0.9 % Sodium Chloride 30 UNIT/500 ML BAG ONE (18:17)
[2023-01-20] MEDS ORDERED: Bisacodyl 10 MG Supp RECTAL PRN (18:41)
[2023-01-20] MEDS ORDERED: Benzocaine/Menthol 20%-0.5% Spray 78 GM Cannister TOP PRN (18:41)
[2023-01-20] MEDS ORDERED: Witch Hazel Medicated Pads 40/Jar TOP PRN (18:41)
[2023-01-20] MEDS ORDERED: Ibuprofen 800 MG Tab PO PRN (18:41)
[2023-01-20] MEDS ORDERED: Misoprostol 200 MCG Tab RECTAL PRN (18:41)
[2023-01-20] MEDS ORDERED: Lanolin 100% Cream 7 GM Tube TOP PRN (18:41)
[2023-01-20 19:56] LABS: PH,UMBILICAL ARTERIAL 7.088 (7.18-7.38); PH,UMBILICAL VENOUS 7.133 (7.25-7.45)
[2023-01-21 03:32] LABS: HEMATOCRIT 24.1 % (37.0-47.0); HEMOGLOBIN 8.8 g/dL (12.0-16.0); MEAN CORPUSCULAR HEMOGLOBIN 34.4 pg (28.0-32.0); MEAN CORPUSCULAR HGB CONC 36.5 g/dL (32.0-36.0); MEAN CORPUSCULAR VOLUME 94.1 fL (83.0-99.0); MEAN PLATELET VOLUME 9.6 fL (9.4-12.3); PLATELET COUNT,PLT 96 K/uL (150-400); RED BLOOD CELL COUNT 2.56 M/uL (4.10-5.30); WHITE BLOOD CELL COUNT,WBC 18.97 K/uL (3.9-11.3)
[2023-01-21] MEDS ORDERED: Propofol 200 MG/20 ML SDV ONE (03:39)
[2023-01-21] MEDS ORDERED: Lidocaine 2% 5 ML SDV ONE (03:42)
[2023-01-21] MEDS ORDERED: Metoclopramide 10 MG/2 ML SDV ONE (03:54)
[2023-01-21 04:01] LABS: INR 1.49 (0.86-1.11); PTT,PARTIAL THROMBOPLSTIN TIME 36.8 SEC (23.9-30.7)
[2023-01-21 04:03] LABS: A/G RATIO 0.8 (0.9-1.6); ALBUMIN 1.8 g/dL (3.4-5.0); BILIRUBIN TOTAL 0.5 mg/dL (0.2-1.0); CALCIUM 7.4 mg/dL (8.5-10.1); CARBON DIOXIDE,CO2 20.5 mmol/L (21.0-32.0); CREATININE 0.8 mg/dL (0.6-1.0); EST CRCL DRUG DOSING (CG) 89.26 mL/min; POTASSIUM,K 4.2 mmol/L (3.5-5.1)
[2023-01-21] MEDS ORDERED: Phenylephrine HCl 0.5 MG/5 ML AMP ONE (04:12)
[2023-01-21] MEDS ORDERED: Oxytocin 10 Units/1 ML SDV ONE ×2 (04:26→04:35)
[2023-01-21] MEDS ORDERED: Phenylephrine 1% 10 MG/ML SDV ONE ×2 (04:27→04:37)
[2023-01-21] MEDS ORDERED: ceFAZolin 1 GM Vial ONE (04:37)
[2023-01-21] MEDS ORDERED: Naloxone 0.4 MG/ML SDV IVPUSH PRN (05:13)
[2023-01-21] MEDS ORDERED: Albuterol 0.083% 2.5 MG/3 ML Neb Soln NEB PRN (05:13)
[2023-01-21] MEDS ORDERED: fentaNYL 50 MCG/ML SDV IVPUSH PRN (05:13)
[2023-01-21] MEDS ORDERED: Metoclopramide 10 MG/2 ML SDV IVPUSH PRN (05:13)
[2023-01-21] MEDS ORDERED: droPERidol 5 MG/2 ML SDV IVPUSH PRN (05:13)
[2023-01-21] MEDS ORDERED: Ondansetron 4 MG/2 ML SDV IVPUSH PRN (05:13)
[2023-01-21] MEDS ORDERED: Morphine 2 MG/ML SYRINGE IVPUSH PRN (05:13)
[2023-01-21] MEDS ORDERED: HYDROmorphone 1 MG/ML Syringe IVPUSH PRN (05:13)
[2023-01-21] MEDS ORDERED: ceFAZolin 1 GM in Sodium Chloride 0.9% 50 ML IV SCH (06:00)
[2023-01-21] MEDS ORDERED: oxyCODONE 5 MG Tab PO PRN (06:33)
[2023-01-21] MEDS: Acetaminophen 500 MG Tab PO PRN ×2 (06:41→18:29)
[2023-01-21 07:08] LABS: HEMATOCRIT 24.1 % (37.0-47.0); HEMOGLOBIN 8.8 g/dL (12.0-16.0)
[2023-01-21 09:28] LABS: HEMATOCRIT 23.6 % (37.0-47.0); HEMOGLOBIN 8.5 g/dL (12.0-16.0); MEAN CORPUSCULAR HEMOGLOBIN 32.7 pg (28.0-32.0); MEAN CORPUSCULAR VOLUME 90.8 fL (83.0-99.0); MEAN PLATELET VOLUME 9.9 fL (9.4-12.3); PLATELET COUNT,PLT 81 K/uL (150-400); WHITE BLOOD CELL COUNT,WBC 21.35 K/uL (3.9-11.3)
[2023-01-21 09:42] LABS: INR 1.16 (0.86-1.11); PTT,PARTIAL THROMBOPLSTIN TIME 34.6 SEC (23.9-30.7)
[2023-01-21 09:56] LABS: A/G RATIO 0.8 (0.9-1.6); ALBUMIN 1.7 g/dL (3.4-5.0); BILIRUBIN TOTAL 0.5 mg/dL (0.2-1.0); CALCIUM 7.9 mg/dL (8.5-10.1); CARBON DIOXIDE,CO2 23.9 mmol/L (21.0-32.0); CREATININE 0.8 mg/dL (0.6-1.0); EST CRCL DRUG DOSING (CG) 89.26 mL/min; POTASSIUM,K 3.8 mmol/L (3.5-5.1); PROTEIN TOTAL,TP 3.8 g/dL (6.4-8.2)
[2023-01-21] MEDS: Lactated Ringers 1,000 ML IV SCH (12:30)
[2023-01-21] MEDS: ceFAZolin 1 GM in Sodium Chloride 0.9% 50 ML IV SCH (21:36)
[2023-01-21 22:25] LABS: HEMATOCRIT 25.6 % (37.0-47.0); HEMOGLOBIN 9.5 g/dL (12.0-16.0); MEAN CORPUSCULAR HGB CONC 37.1 g/dL (32.0-36.0); MEAN CORPUSCULAR VOLUME 88.9 fL (83.0-99.0); MEAN PLATELET VOLUME 10.1 fL (9.4-12.3); PLATELET COUNT,PLT 70 K/uL (150-400); RED BLOOD CELL COUNT 2.88 M/uL (4.10-5.30); WHITE BLOOD CELL COUNT,WBC 20.52 K/uL (3.9-11.3)
[2023-01-21 22:38] LABS: INR 0.98 (0.86-1.11); PTT,PARTIAL THROMBOPLSTIN TIME 30.6 SEC (23.9-30.7)
[2023-01-21 23:07] LABS: A/G RATIO 0.8 (0.9-1.6); ALBUMIN 2.1 g/dL (3.4-5.0); BILIRUBIN TOTAL 0.4 mg/dL (0.2-1.0); CALCIUM 8.4 mg/dL (8.5-10.1); CARBON DIOXIDE,CO2 24.3 mmol/L (21.0-32.0); CREATININE 0.8 mg/dL (0.6-1.0); EST CRCL DRUG DOSING (CG) 89.26 mL/min; PROTEIN TOTAL,TP 4.9 g/dL (6.4-8.2)
[2023-01-22] MEDS: ceFAZolin 1 GM in Sodium Chloride 0.9% 50 ML IV SCH ×2 (04:15→12:40)
[2023-01-22 07:19] LABS: HEMATOCRIT 30.6 % (37.0-47.0); HEMOGLOBIN 10.9 g/dL (12.0-16.0); MEAN CORPUSCULAR HEMOGLOBIN 32.1 pg (28.0-32.0); MEAN CORPUSCULAR HGB CONC 35.6 g/dL (32.0-36.0); MEAN PLATELET VOLUME 11.1 fL (9.4-12.3); PLATELET COUNT,PLT 81 K/uL (150-400); WHITE BLOOD CELL COUNT,WBC 21.84 K/uL (3.9-11.3)
[2023-01-22 08:11] LABS: BAND ABSOLUTE MAN 1.53; BAND PERCENT MAN 7 %; EOSINOPHILS ABSOLUTE MAN 0.22 K/uL (0.00-0.45); EOSINOPHILS PERCENT MAN 1 % (0-6); LYMPHOCYTES PERCENT MAN 11 % (24-44); MONOCYTES ABSOLUTE MAN 1.53 K/uL (0.00-0.80); MONOCYTES PERCENT MAN 7 % (0-8); SEG NEUTROPHILS ABSOLUTE MAN 16.16 K/uL (1.80-7.70); SEG NEUTROPHILS PERCENT MAN 74 % (41-71)
[2023-01-22] MEDS: Docusate Sodium 100 MG Cap PO PRN ×2 (08:40→20:11)
[2023-01-23 07:24] LABS: HEMATOCRIT 28.1 % (37.0-47.0); HEMOGLOBIN 9.9 g/dL (12.0-16.0); MEAN CORPUSCULAR HEMOGLOBIN 31.9 pg (28.0-32.0); MEAN CORPUSCULAR HGB CONC 35.2 g/dL (32.0-36.0); MEAN CORPUSCULAR VOLUME 90.6 fL (83.0-99.0); NRBC ABSOLUTE 0.04 K/uL (0.00-0.02); NRBC PERCENT 0.3 /100WBC (0.0-0.2); PLATELET COUNT,PLT 101 K/uL (150-400)
[2023-01-23 08:53] VITALS: BP 125/76; PULSE 86
== END 2023-01-23 12:34 | disposition home or self-care (01) | DRG 542 ==
LOC: MW.OBCHECK 05:16 → MW.OB 05:17 → MW.OBCHECK 05:18 → MW.OB 05:18 → OBSVTOIN 18:12 → MW.OB 01-21 00:45
PROVIDERS: ADMIT Obstetrics & Gynecology; ATTEND Obstetrics & Gynecology
PROC: 10E0XZZ Delivery of Products of Conception, External Approach (ICD-10-PCS; principal; 2023-01-20)
PROC: 10907ZC Drainage of Amniotic Fluid, Therapeutic from Products of Conception, Via Natural or Artificial Opening (ICD-10-PCS; 2023-01-20)
PROC: 3E033VJ Introduction of Other Hormone into Peripheral Vein, Percutaneous Approach (ICD-10-PCS; 2023-01-20)
PROC: 3E0P7VZ Introduction of Hormone into Female Reproductive, Via Natural or Artificial Opening (ICD-10-PCS; 2023-01-20)
PROC: 0KQM0ZZ Repair Perineum Muscle, Open Approach (ICD-10-PCS; 2023-01-20)
PROC: 3E0R3BZ Introduction of Anesthetic Agent into Spinal Canal, Percutaneous Approach (ICD-10-PCS; 2023-01-21)
PROC: 00HU33Z Insertion of Infusion Device into Spinal Canal, Percutaneous Approach (ICD-10-PCS; 2023-01-21)
PROC: 0W3R7ZZ Control Bleeding in Genitourinary Tract, Via Natural or Artificial Opening (ICD-10-PCS; 2023-01-21)
DX: O99.824 Streptococcus B carrier state complicating childbirth (principal); O70.1 Second degree perineal laceration during delivery; O72.1 Other immediate postpartum hemorrhage; Z37.0 Single live birth; Z3A.38 38 weeks gestation of pregnancy
CPT/HCPCS: 00940; 01967; 36415; 36430; 51702; 59025; 59409; 80053; 82803; 85014; 85018; 85025; 85027; 85384; 85610; 85730; 86592; 86850; 86900; 86901; 86920; A9270-GY; J0665; J0690; J2210; J2371; J2405; J2590; J2704; J2765; J2795; J3490; J7120; P9016; P9017